=== PATIENT | female | born 1955 | race Hispanic/Latino ===

== ENCOUNTER → 2017-09-20 | Outpatient (CLI) | payer OTHER ==
--- NOTE | 2017-09-20 11:23 | Diagnostic Imaging Report ---
PROCEDURE:X-RAY ABDOMEN - KUB COMPARISON:Abdomen one view 04/08/2017. INDICATIONS:CALCULUS OF THE KIDNEY FINDINGS: There is a non-obstructed bowel-gas pattern. There are no calcifications projected over the renal shadows, expected course of the ureters or bladder. Phleboliths are present in the pelvis. There are no acute osseous abnormalities. The lung bases are clear. CONCLUSION: No acute radiographic abnormality. Dictated by: Jose Fairchild M.D. on 09/20/2017 at 11:25 Electronically approved by: Jose Fairchild M.D. on 09/20/2017 at 11:25
== END | disposition home or self-care (01) ==
LOC: RAD 09:59
PROVIDERS: ATTEND Urology
DX: N20.0 Calculus of kidney (principal)
CPT/HCPCS: 74018

== ENCOUNTER → 2018-07-08 | Outpatient (CLI) | payer OTHER ==
--- NOTE | 2018-07-08 11:42 | Diagnostic Imaging Report ---
EXAM: Complete Abdominal Ultrasound INDICATION: Abdominal pain. ^EPIGASTRIC PAIN COMPARISON: None. TECHNIQUE: Transverse and longitudinal images of the upper abdomen were obtained. FINDINGS: Liver: Size: 17.4 cm in the right midclavicular line, enlarged Appearance: Increased echogenicity, smooth contour Mass: No focal masses Spleen: Size: 9.9 cm in length, normal Echogenicity: Normal Mass: No focal masses Gallbladder: Stones/Sludge: Multiple echogenic foci with shadowing are seen in the lumen of the gallbladder likely due to small stones. Wall: 0.2 cm Appearance: No wall thickening, pericholecystic fluid or hydrops. Sonographic Lang's Sign: Negative Bile Ducts: Intrahepatic Ducts: No dilatation Extrahepatic Ducts: Common bile duct measures 0.5 cm, no dilatation Pancreas: Visualized portions of the pancreatic head, neck and proximal body are normal. Kidneys: Length: Right 10.8 cm Left 10.8 cm Echogenicity: Normal Collecting System: No hydronephrosis Stone: None Cyst/Mass: 1.7 x 1.0 x 1.4 cm anechoic left renal lesion consistent with a simple cyst. Vessels: Aorta: Visualized portions are normal Inferior Vena Cava: Visualized portions are normal Main Portal Vein: 1.0 cm, normal size with hepatopetal flow. Free Fluid: No ascites or pleural effusion IMPRESSION: Hepatomegaly with increased echogenicity in the liver could be due to fatty infiltration. Gallstones without ductal dilatation. Simple appearing left renal cyst. Signed by: Dr. Mark Siddiqui M.D. on 07/08/2018 11:38 AM
== END ==
LOC: US 09:46
PROVIDERS: ATTEND Internal Medicine Gastroenterology
DX: R10.13 Epigastric pain (principal)
CPT/HCPCS: 76700

== ENCOUNTER → 2018-07-19 | Day surgery (SDC) | payer OTHER ==
[~2018-07-19] MED LIST: ATORVASTATIN CA10 MG PO; GLUCOSAMINE1000 MG PO; HYOSCYAMINE SULFATE 0.5 MG/ML INJ ONE; LISINOPRIL2.5 MG PO; PROPOFOL IV EMULSION 10 MG/ML 20 ML VIAL ONE; TURMERIC PO; VIT D3 PO
--- OUTSIDE RECORDS SUMMARY | 2018-07-19 10:07 | XMS REPORT ---
Author Author [facility] Address Unknown Phone Unavailable Care Team Providers Care Marine Scientist Name Role Phone ROSEANNA MEHTA Unavailable Unavailable SINCERE ESPAÑA Unavailable Unavailable Problems This patient has no known problems. Allergies, Adverse Reactions, Alerts This patient has no known allergies or adverse reactions. Medications This patient has no known medications. Results Test Description Test Time Test Comments Text Results Atomic Results Result Comments US ABDOMEN COMPLETE 2018-07-08 11:36:00 [place] [address] Patient Name: JOSE RAFAEL WATSON MR #: [id number] : 1955 Age/Sex: 63/F Req #: [id number] Adm Physician: Ordered by: ROSEANNA MEHTA MD Report #: [id number] Location: US Room/Bed: Procedure: [id number] US/US ABDOMEN COMPLETE Exam Date: Exam Time: REPORT STATUS: Signed EXAM: Complete Abdominal Ultrasound INDICATION: Abdominal pain. EPIGASTRIC PAIN COMPARISON: None. TECHNIQUE: Transverse and longitudinal images of the upper abdomen were obtained. FINDINGS: Liver: Size: 17.4 cm in the right midclavicular line, enlarged Appearance: Increased echogenicity, smooth contour Mass: No focal masses Spleen: Size: 9.9 cm in length, normal Echogenicity: Normal Mass: No focal masses Gallbladder: Stones/Sludge: Multiple echogenic foci with shadowing are seen in the lumen of the gallbladder likely due to small stones. Wall: 0.2 cm Appearance: No wall thickening, pericholecystic fluid or hydrops. Sonographic Lang's Sign: Negative Bile Ducts: Intrahepatic Ducts: No dilatation Extrahepatic Ducts: Common bile duct measures 0.5 cm, no dilatation Pancreas: Visualized portions of the pancreatic head, neck and proximal body are normal. Kidneys: Length: Right 10.8 cm Left 10.8 cm Echogenicity: Normal Collecting System: No hydronephrosis Stone: None Cyst/Mass: 1.7 x 1.0 x 1.4 cm anechoic left renal lesion consistent with a simple cyst. Vessels: Aorta: Visualized portions are normal Inferior Vena Cava: Visualized portions are normal Main Portal Vein: 1.0 cm, normal size with hepatopetal flow. Free Fluid: No ascites or pleural effusion IMPRESSION: Hepatomegaly with increased echogenicity in the liver could be due to fatty infiltration. Gallstones without ductal dilatation. Simple appearing left renal cyst. Signed by: Dr. Mark Siddiqui M.D. on 07/08/2018 11:38 AM Dictated By: MARK SIDDIQUI MD, MD 1138 Transcribed By: SAVANNAH on 07/08/18 1138 COPY TO: ROSEANNA MEHTA MD ABDOMEN-[facility] ([place] [address] Patient Name: JOSE RAFAEL WATSON MR #: [id number] : 1955 Age/Sex: 62/F Req #: [id number] Adm Physician: Ordered by: SINCERE ESPAÑA MD Report #: [id number] Location: [facility] Room/Bed: Procedure: [id number] DX/ABDOMEN-1VIEW (KUB) Exam Date: 09/20/17 Exam Time: 1000 REPORT STATUS: Signed PROCEDURE: X-RAY ABDOMEN - KUB COMPARISON: Abdomen one view 04/08/2017. INDICATIONS: CALCULUS OF THE KIDNEY FINDINGS: There is a non-obstructed bowel-gas pattern. There are no calcifications projected over the renal shadows, expected course of the ureters or bladder. Phleboliths are present in the pelvis. There are no acute osseous abnormalities. The lung bases are clear. CONCLUSION: No acute radiographic abnormality. Dictated by: Hai Rodarte M.D. on 09/20/2017 at 11:25 Electronically approved by: Hai Rodarte M.D. on 09/20/2017 at 11:25 Dictated By: HAI RODARTE MD 1125 Transcribed By: MYRA on 09/20/17 1125 COPY TO: SINCERE ESPAÑA MD ABDOMEN-1VIEW (KUB) [place] [address] Patient Name: JOSE RAFAEL WATSON MR #: [id number] : 1955 Age/Sex: 61/F Req #: [id number] Adm Physician: Ordered by: SINCERE ESPAÑA MD Report #: [id number] Location: [facility] Room/Bed: Procedure: [id number] DX/ABDOMEN-1VIEW (KUB) Exam Date: 04/08/17 Exam Time: 1425 REPORT STATUS: Signed PROCEDURE: X-RAY ABDOMEN - KUB COMPARISON: Abdomen 09/01/2016. CT abdomen pelvis 02/14/2016. INDICATIONS: Renal stone FINDINGS: There is a non-obstructed bowel-gas pattern. There are no calcifications projected over the renal shadows, expected course of the ureters or bladder. There are no acute osseous abnormalities. The lung bases are clear. Heterotopic ossification adjacent to the right greater trochanter. CONCLUSION: Normal abdominal radiograph. No renal stones. Dictated by: Marcello Ramos M.D. on 04/08/2017 at 16:16 Electronically approved by: Marcello Ramos M.D. on 04/08/2017 at 16:16 Dictated By: MARCELLO RAMOS MD 161 Transcribed By: MYRA on 04/08/171615 COPY TO: SINCERE ESPAÑA MD
[2018-07-19 14:15] VITALS: BP 120/84
== END | disposition home or self-care (01) ==
LOC: OR 10:05
PROVIDERS: ATTEND Internal Medicine Gastroenterology
DX: K29.00 Acute gastritis without bleeding (principal); B96.81 Helicobacter pylori [H. pylori] as the cause of diseases classified elsewhere; Z12.11 Encounter for screening for malignant neoplasm of colon; Z80.0 Family history of malignant neoplasm of digestive organs; K44.9 Diaphragmatic hernia without obstruction or gangrene; K29.80 Duodenitis without bleeding; K26.9 Duodenal ulcer, unspecified as acute or chronic, without hemorrhage or perforation; K20.9 Esophagitis, unspecified; D12.3 Benign neoplasm of transverse colon; K57.30 Diverticulosis of large intestine without perforation or abscess without bleeding; K64.8 Other hemorrhoids; I10 Essential (primary) hypertension; M06.9 Rheumatoid arthritis, unspecified; M32.9 Systemic lupus erythematosus, unspecified; E78.5 Hyperlipidemia, unspecified; Z01.810 Encounter for preprocedural cardiovascular examination
CPT/HCPCS: 43239; 45385; 93005; J1980; J2704; 45378

== ENCOUNTER → 2018-12-20 | Outpatient (CLI) | payer OTHER ==
[~2018-12-20] MED LIST changes: -HYOSCYAMINE SULFATE 0.5 MG/ML INJ ONE; -PROPOFOL IV EMULSION 10 MG/ML 20 ML VIAL ONE
--- NOTE | 2018-12-20 15:37 | Diagnostic Imaging Report ---
Exam: KUB - 2 views Clinical History: Ureteral calculi Comparison: KUB of 04/08/2017 Findings: Nonobstructive bowel gas pattern. No evidence of free intraperitoneal air. No evidence of abnormal calcification. No acute bony abnormality. Mild degenerative changes of both hip joints. Impression: No radiographically apparent renal calculi. Signed by: Lois Galvan MD on 12/20/2018 3:33 PM
== END ==
LOC: RAD 15:03
PROVIDERS: ATTEND Urology
DX: N20.0 Calculus of kidney (principal)
CPT/HCPCS: 74018

== ENCOUNTER → 2019-11-21 | Day surgery (SDC) | payer MEDICARE, OTHER ==
[2019-11-17 16:01] LABS: BASOPHILS # (AUTO) 0.1 (0.0-0.1); BASOPHILS % 0.5 % (0.0-1.0); EOSINOPHILS # (AUTO) 0.2 (0.0-0.4); EOSINOPHILS % 1.9 % (0.0-6.0); HEMATOCRIT 35.9 % (34.2-44.1); HEMOGLOBIN 11.5 g/dL (12.0-16.0); LYMPHOCYTES # (AUTO) 3.6 (1.0-3.2); LYMPHOCYTES % 35.7 % (18.0-39.1); MEAN CORPUSCULAR HEMOGLOBIN 28.8 pg (28-32); MEAN CORPUSCULAR VOLUME 89.8 fL (81-99); MONOCYTES # (AUTO) 0.6 (0.2-0.8); MONOCYTES % 5.8 % (4.4-11.3); NEUTROPHILS # (AUTO) 5.6 (2.1-6.9); NEUTROPHILS % 55.7 % (38.7-80.0); PLATELET COUNT 287 x10e3/uL (140-360); RED CELL DISTRIBUTION WIDTH 13.3 % (11.7-14.4)
[~2019-11-21] MED LIST changes: +FENOPROFEN CAL600 MG PO; +LIDOCAINE HCL 2% LOCAL INJ 5 ML SDV VIAL INJ ONE; +LOSARTAN POTAS100 MG PO; +METFORMIN HCL500 MG PO; +OMEGA-31000 MG PO; +PROPOFOL IV EMULSION 10 MG/ML 20 ML VIAL ONE; +SPIRONOLACTONE25 MG PO; +VASCEPA1 GM PO; +ZETIA10 MG PO
[2019-11-21 09:10] VITALS: BP 140/68
== END | disposition home or self-care (01) ==
LOC: OR 05:59
PROVIDERS: ATTEND Internal Medicine Gastroenterology
DX: K29.50 Unspecified chronic gastritis without bleeding (principal); M32.9 Systemic lupus erythematosus, unspecified; E11.9 Type 2 diabetes mellitus without complications; I10 Essential (primary) hypertension; K90.0 Celiac disease; E66.01 Morbid (severe) obesity due to excess calories; K76.0 Fatty (change of) liver, not elsewhere classified; M19.90 Unspecified osteoarthritis, unspecified site; Z01.810 Encounter for preprocedural cardiovascular examination; Z01.812 Encounter for preprocedural laboratory examination; Z11.59 Encounter for screening for other viral diseases; Z79.899 Other long term (current) drug therapy
CPT/HCPCS: 36415 ×2; 43239; 82948; 85025; 87635; 93005; J2001; J2704

== ENCOUNTER 2022-09-07 20:58 | Emergency (ER) | payer MEDICARE ==
[~2022-09-07] VITALS: Ht 154.9 cm; Wt 114.3 kg
[~2022-09-07 20:58] MED LIST changes: -LIDOCAINE HCL 2% LOCAL INJ 5 ML SDV VIAL INJ ONE; -PROPOFOL IV EMULSION 10 MG/ML 20 ML VIAL ONE
[2022-09-07] MEDS ORDERED: CYCLOBENZAPRINE HCL 10 MG TAB PO ONE (22:45)
[2022-09-07] MEDS ORDERED: HYDROCODONE/APAP 5MG-325MG TAB PO ONE (22:45)
[2022-09-07] MEDS ORDERED: PREDNISONE50 MG PO (23:03)
[2022-09-07] MEDS ORDERED: CYCLOBENZAPRINE5 MG PO (23:04)
[2022-09-07] MEDS ORDERED: HYDROCODON-ACE1 EA12 PO (23:05)
[2022-09-07] MEDS ORDERED: HYDROCODONE/APAP 5MG-325MG TAB ONE (23:07)
[2022-09-07] MEDS ORDERED: CYCLOBENZAPRINE HCL 10 MG TAB ONE (23:10)
[2022-09-07 23:25] VITALS: BP 176/86
== END 2022-09-07 23:25 | disposition home or self-care (01) ==
LOC: FSED 21:02
DX: M54.32 Sciatica, left side (principal); M54.16 Radiculopathy, lumbar region; E11.9 Type 2 diabetes mellitus without complications; I10 Essential (primary) hypertension; E78.5 Hyperlipidemia, unspecified; Z79.84 Long term (current) use of oral hypoglycemic drugs; Z79.899 Other long term (current) drug therapy
CPT/HCPCS: 99283

== ENCOUNTER 2024-07-28 15:55 | Emergency (ER) | payer MEDICARE ==
[~2024-07-28] VITALS: Ht 152.4 cm; Wt 125.0 kg
[~2024-07-28 15:55] MED LIST changes: +CYCLOBENZAPRINE5 MG PO; +HYDROCODON-ACE1 EA12 PO; +ONDANSETRON ODT4 MG PO; +PREDNISONE50 MG PO; +PROTONIX20 MG PO
[2024-07-28] MEDS: CYCLOBENZAPRINE HCL 10 MG TAB PO ONE (16:27)
[2024-07-28] MEDS: IBUPROFEN 400 MG TAB PO STA (16:27)
[2024-07-28] MEDS ORDERED: METHOCARBAMOL750 MG PO (17:52)
[2024-07-28] MEDS ORDERED: IBUPROFEN800 MG PO (17:52)
[2024-07-28 18:07] VITALS: PULSE 71; RESP 18; TEMP 97.9; O2SAT 97
== END 2024-07-28 18:07 | disposition home or self-care (01) ==
LOC: FSED 15:59
DX: S83.8X2A Sprain of other specified parts of left knee, initial encounter (principal); W17.89XA Other fall from one level to another, initial encounter; Y93.01 Activity, walking, marching and hiking; Y92.89 Other specified places as the place of occurrence of the external cause; I10 Essential (primary) hypertension; E11.9 Type 2 diabetes mellitus without complications; E78.5 Hyperlipidemia, unspecified; K21.9 Gastro-esophageal reflux disease without esophagitis; E66.9 Obesity, unspecified
CPT/HCPCS: 99283